=== PATIENT | male | born 1975 | race Caucasian/White ===

== ENCOUNTER 2018-10-21 07:18 | Emergency (ER) | payer OTHER ==
[~2018-10-21] VITALS: Ht 182.9 cm; Wt 90.7 kg
[~2018-10-21 07:18] MED LIST: BLOOD PRESSURE; CHOLESTEROL
[2018-10-21] MEDS ORDERED: PRINIVIL20 MG PO (07:24)
[2018-10-21 07:48] LABS: ABSOLUTE BASOPHILS 0.1 thou/uL (0.0-0.2); ABSOLUTE EOSINOPHILS 0.2 thou/uL (0.0-0.7); ABSOLUTE MONOCYTES 0.4 thou/uL (0.0-1.2); ABSOLUTE NEUTROPHILS 3.4 thou/uL (1.6-8.1); BASOPHILS 1.2 %; EOSINOPHILS 3.2 %; HEMATOCRIT 43.6 % (42.0-52.0); HEMOGLOBIN 15.1 gm/dL (14.0-18.0); MCH 32.6 pg (26.0-34.0); MCHC 34.5 g/dL (28.0-37.0); MCV 94.4 fL (80.0-100.0); MONOCYTES 7.6 %; MPV 10.6 fl. (7.2-11.1); NUCLEATED RBCS 0 /100WBC; PLATELET COUNT* 134 thou/uL (150-400); RBC 4.62 mil/uL (4.50-6.00); RDW-CV 13.1 % (10.5-14.5)
[2018-10-21 07:55] LABS: ANION GAP 9 mmol/L (7-16); BUN 12 mg/dL (7-18); CALCIUM 8.3 mg/dL (8.5-10.1); CHLORIDE 105 mmol/L (98-107); CO2 26 mmol/L (21-32); GLUCOSE 96 mg/dL (70-99); SODIUM 140 mmol/L (136-145)
[2018-10-21 08:09] LABS: ALKALINE PHOSPHATASE 68 U/L (46-116); LIPASE 111 U/L (73-393); NT-PRO BRAIN NAT PEPTIDE 13 pg/mL (<300); SGOT 11 U/L (15-37); SGPT 16 U/L (30-65); TOTAL BILIRUBIN 1.3 mg/dL (<0.1-1.0); TOTAL PROTEIN 7.3 g/dL (6.4-8.2); TROPONIN-I LEVEL <0.06 ng/mL (<0.06)
[2018-10-21] MEDS ORDERED: FLEXERIL PO (08:12)
[2018-10-21 08:44] VITALS: BP 113/65
--- NOTE | 2018-10-22 18:01 | EKG ---
[place] [address] ELECTROCARDIOGRAM REPORT Name: TENA AVELAR Room: [facility]#: [id number] Admission: 10/21/18 Attend Phys: Discharge: 10/21/18 Date of : 71 Report #: [id number] THIS REPORT FOR: //name// [facility] ED Test Date: 2018-10-21 Test Time: 07:22:40 Pat Name: TENA AVELAR Department: Room: Gender: M Cs Associate: AYO : 1975 Requested By: Gurjit Khan Order Number: [id number] MD: Mike Bonner Measurements Intervals [place] Rate: 60 P: 7 LA: 149 QRS: -15 QRSD: 114 T: -10 QT: 414 QTc: 414 Interpretive Statements Sinus rhythm Incomplete right bundle branch block Baseline wander in lead(s) II,III,aVF No previous ECG available for comparison Electronically Signed On 10-22-2018 18:01:02 [employer] CONSULTANT by Mike Bonner [email or web address] <ELECTRONICALLY SIGNED> By: Mike Bonner MD, [facility] 10/22/18 1801 0722 1 Mike Bonner MD, FACC /EPI
== END 2018-10-21 08:45 | disposition home or self-care (01) ==
LOC: M.ERS 07:18
PROVIDERS: Emergency Medicine
DX: R07.89 Other chest pain (principal); I10 Essential (primary) hypertension; E78.00 Pure hypercholesterolemia, unspecified; F17.210 Nicotine dependence, cigarettes, uncomplicated; Z88.0 Allergy status to penicillin